=== PATIENT | female | born 1990 | race African-American/Black ===

== ENCOUNTER → 2016-11-12 | Outpatient (CLI) | payer BC ==
--- NOTE | ~2016-11-12 | US5 ---
[facility] A Service of [facility] [place] RADIOLOGY TEXT RESULTS PATIENT: SEVERO DUBOIS LOCATION: [facility] : [birth year] UNIT #: [id number] AGE: [address]: FREDDY FINCH MD SEX: F ORDER DR: [id number] [facility] [address] [place], [place] [address] [id number] O MR#: [id number] Acc #: [id number] NAME: SEVERO DUBOIS : 1990 SEX: F STUDY DATE/TIME: 11/12/2016 10:14 UNIT: [facility] ROOM: STUDY DESCRIPTION: US Abdominal Complete Attending Physician: Freddy Finch M.D. Ordering Physician: Freddy Finch M.D. Primary Care Physician: Freddy Finch M.D. MEDICAL IMAGING REPORT This report is preliminary unless electronic signature is present EXAM Abdominal ultrasound complete 11/12/2016 INDICATIONS 25-year-old female with elevated liver enzymes for the past week. TECHNIQUE Sonographic imaging of the abdomen was performed. COMPARISON No comparisons. FINDINGS Segmentally visualized aorta and IVC unremarkable. The pancreas is not well visualized or assessed. The liver measures about 15.6 cm long axis. Echogenicity of the parenchyma is increased compared to the right kidney suggestive of fatty infiltration. The liver is otherwise unremarkable. The gallbladder is sonographically within normal limits. Extrahepatic common bile duct measures 3-4 mm. The kidneys are nonobstructed. No shadowing stone on either side. The right kidney measures 10.7 cm long axis and the left 11.6 cm. The spleen is top normal in size at 12 cm long axis. IMPRESSION Imaging features most characteristic of fatty infiltration of the liver. Otherwise negative abdominal ultrasound. Limited evaluation of the pancreas. Dictated by... Chris Hackett M.D. THIS IS AN ELECTRONICALLY VERIFIED REPORT Chris Hackett M.D. at 11/14/2016 6:14 AM [facility] A Service of [facility] [place] RADIOLOGY TEXT RESULTS PATIENT: SEVERO DUBOIS LOCATION: [facility] : [birth year] UNIT #: [id number] AGE: [address]: FREDDY FINCH MD SEX: F ORDER DR: MEENA/seamus TD: 11/12/2016 20:12 JOB #: [id number] MEDICAL IMAGING REPORT Page 1 of 1 COPY
== END | disposition home or self-care (01) ==
LOC: CWCC 09:55
DX: R79.89 Other specified abnormal findings of blood chemistry (principal); K76.0 Fatty (change of) liver, not elsewhere classified
CPT/HCPCS: 76700